=== PATIENT | female | born 1940 | race Caucasian/White ===

== ENCOUNTER 2017-08-06 01:18 | Emergency (ER) | payer MEDICARE, OTHER ==
[~2017-08-06] VITALS: Ht 157.5 cm; Wt 134.7 kg
[2017-08-06 01:25] VITALS: BP 132/90
[2017-08-06] MEDS ORDERED: HYDROCODONE/APAP 5/325MG 1 EACH TABLET ONE ×2 (01:40→02:26)
[2017-08-06] MEDS ORDERED: TDAP [DIPH/PERTUSSIS/TET] 0.5 ML VIAL IM ONE (02:00)
[2017-08-06] MEDS ORDERED: HYDROCODONE/APAP 5/325MG 1 EACH TABLET PO ONE (02:00)
[2017-08-06] MEDS ORDERED: LIDOCAINE 1%-EPI 1:100,000 20 ML VIAL ONE (02:21)
== END 2017-08-06 03:46 | disposition home or self-care (01) ==
LOC: ER 01:19
DX: S81.012A Laceration without foreign body, left knee, initial encounter (principal); S83.92XA Sprain of unspecified site of left knee, initial encounter; E11.9 Type 2 diabetes mellitus without complications; I10 Essential (primary) hypertension; W01.0XXA Fall on same level from slipping, tripping and stumbling without subsequent striking against object, initial encounter; Y93.K1 Activity, walking an animal; Y92.480 Sidewalk as the place of occurrence of the external cause; Y99.8 Other external cause status
CPT/HCPCS: 73564-TC; A4606; A6402; A6403; J3490; Z7610

== ENCOUNTER 2019-03-28 14:15 | Outpatient (CLI) | payer MEDICARE, OTHER | END 2019-03-28 23:59 | disposition home or self-care (01) | LOC: WOU 14:15 | PROVIDERS: ATTEND Podiatrist Foot & Ankle Surgery | DX: M76.61 Achilles tendinitis, right leg (principal); M70.871 Other soft tissue disorders related to use, overuse and pressure, right ankle and foot; S86.011A Strain of right Achilles tendon, initial encounter; X58.XXXA Exposure to other specified factors, initial encounter; Y92.89 Other specified places as the place of occurrence of the external cause; E66.01 Morbid (severe) obesity due to excess calories; Z68.42 Body mass index [BMI] 45.0-49.9, adult; I89.0 Lymphedema, not elsewhere classified; M92.60 Juvenile osteochondrosis of tarsus, unspecified ankle | CPT/HCPCS: G0463 ==